=== PATIENT | male | born 1990 | race Caucasian/White ===

== ENCOUNTER 2022-06-29 10:18 | Emergency (ER) | payer MEDICAID, OTHER ==
[~2022-06-29] VITALS: Ht 162.6 cm; Wt 70.5 kg
[2022-06-29 10:39] VITALS: BP 110/77
[2022-06-29] MEDS ORDERED: orphenadrine citrate 60mg/2ml inj. IM ONE (11:10)
[2022-06-29] MEDS ORDERED: ketorolac trometh inj. 60 MG/2 ML VIAL IM ONE (11:10)
[2022-06-29] MEDS ORDERED: LIDOcaine 5% patch TP STA (11:10)
[2022-06-29] MEDS ORDERED: CYCL-1 PO (11:11)
[2022-06-29] MEDS ORDERED: LIDO700A32 TOP (11:11)
== END 2022-06-29 11:43 | disposition home or self-care (01) ==
LOC: ER 10:20
DX: S39.012A Strain of muscle, fascia and tendon of lower back, initial encounter (principal); Z79.899 Other long term (current) drug therapy; M62.830 Muscle spasm of back; X58.XXXA Exposure to other specified factors, initial encounter; Y93.89 Activity, other specified; Y92.89 Other specified places as the place of occurrence of the external cause; Y99.8 Other external cause status
CPT/HCPCS: 96372; 99284; J1885; J2360